=== PATIENT | male | born 1985 | race Caucasian/White ===

== ENCOUNTER 2017-08-13 11:58 | Emergency (ER) | payer SELFPAY ==
[2017-08-13] MEDS ORDERED: ASPIRIN PO ONE (12:15)
--- NOTE | 2017-08-13 12:41 | Emergency Department Report ---
ED Palpitations HPI - General Chief Complaint: Chest Pain Stated Complaint: CP/TACHYCARDIA WPW Time Seen by Provider: 08/13/17 12:29 Source: patient, old records reviewed (none available, first visit) Mode of arrival: Ambulatory Limitations: No Limitations - History of Present Illness Initial Comments: 31-year-old male with a past medical history of asthma, hypertension, WPW status post ablation 4 years ago presents to the hospital with complaints of intermittent palpitations and chest pain 1 week. Patient states he is having intermittent left-sided stabbing chest pain without aggravating or alleviating activities. Pain is minimal at this time. Patient also expresses at night he experiences tachycardia with irregular rhythm causing him with associated shortness of breath. Patient also has tenderness to his hands during episodes. Patient is supposedly on metoprolol 25 mg twice a day but has been out of her medication for 2-3 weeks. Patient has a heart rate monitor and knows how to check his pulse rate but he has not counted or documented his pulse rate during these tachycardic episodes. Patient denies history of PE/DVT, recent travel, calf tenderness, or unilateral edema. Patient has significant pain of the left posterior thoracic pain that started after lifting a heavy object. This pain is worse with movement and palpation. As per triage pain is reported 10/10 in intensity however this does not appear to be acute distress. His cardiac ablation occurred while living in [place]. 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 - Related Data Previous Rx's Medication Instructions Recorded Last Taken Type ALBUTEROL Inhaler [ProAir HFA 2 puff IH QID PRN #1 inha 08/13/17 Unknown Rx Inhaler] Metoprolol [Lopressor TAB] 25 mg PO BID #60 tablet 08/13/17 Unknown Rx Naproxen [Naprosyn TAB] 500 mg PO BID PRN #30 tablet 08/13/17 Unknown Rx Allergies Allergy/AdvReac Type Severity Reaction Status Date / Time No Known Allergies Allergy Unverified 08/13/17 12:11 ED Review of Systems ROS: Stated complaint: CP/TACHYCARDIA WPW Other details as noted in HPI Comment: All other systems reviewed and negative ED Past Medical Hx - Past Medical History Previous Medical History?: Yes Hx Hypertension: Yes Hx Heart Attack/AMI: No Hx Asthma: Yes Additional medical history: WPW - Surgical History Past Surgical History?: Yes Additional Surgical History: Cardiac ablation for WPW 2014 in [place] - Social History Smoking Status: Current Every Day Smoker Substance Use Type: None - Medications Home Medications: Home Medications Medication Instructions Recorded Confirmed Last Taken Type ALBUTEROL Inhaler [ProAir HFA 2 puff IH QID PRN #1 inha 08/13/17 Unknown Rx Inhaler] Metoprolol [Lopressor TAB] 25 mg PO BID #60 tablet 08/13/17 Unknown Rx Naproxen [Naprosyn TAB] 500 mg PO BID PRN #30 tablet 08/13/17 Unknown Rx ED Physical Exam - General Limitations: No Limitations - Other Other exam information: General: No limitations, patient is alert in no acute distress Head exam: Atraumatic, normocephalic Eyes exam: Normal appearance ENT: Moist mucous membrane, normal oropharynx Neck exam: Normal inspection, full range of motion, no meningismus nontender Respiratory exam: Clear to auscultation bilateral, no wheezes, rales, crackles Cardiovascular: Normal rate and rhythm, normal heart sounds, mild left anterior posterior lateral thoracic tenderness Abdomen: Soft, nondistended, and nontender, with normal bowel sounds, no rebound, or guarding Extremity: Full range of motion normal inspection no deformity, no calf tenderness, leg asymmetry, or edema. Back: Normal Inspection, full range of motion, no tenderness Neurologic: Alert, oriented x3, cranial nerves intact, no motor or sensory deficit Psychiatric: normal affect, normal mood Skin: Warm, dry, intact ED Course Vital Signs 08/13/17 08/13/17 08/13/17 12:11 12:36 12:40 Temperature 98.0 F 98 F Pulse Rate 83 84 Respiratory 18 18 Rate Blood Pressure 137/75 Blood Pressure 123/79 [Right] O2 Sat by Pulse 98 96 96 Oximetry 08/13/17 12:45 Temperature Pulse Rate 88 Respiratory 18 Rate Blood Pressure 123/79 Blood Pressure [Right] O2 Sat by Pulse 98 Oximetry ED Medical Decision Making - Lab Data Result diagrams: 08/13/17 13:22 08/13/17 13:22 Lab Results 08/13/17 08/13/17 08/13/17 Range/Units 13:22 13:22 13:22 WBC 8.3 (4.5-11.0) K/mm3 RBC 5.29 H (3.65-5.03) M/mm3 Hgb 15.2 (11.8-15.2) gm/dl Hct 44.6 (35.5-45.6) % MCV 84 (84-94) fl MCH 29 (28-32) pg MCHC 34 (32-34) % RDW 13.2 (13.2-15.2) % Plt Count 243 (140-440) K/mm3 Lymph % (Auto) 24.1 (13.4-35.0) % [place] % (Auto) 7.0 (0.0-7.3) % Eos % (Auto) 4.1 (0.0-4.3) % Baso % (Auto) 1.3 (0.0-1.8) % Lymph # 2.0 (1.2-5.4) K/mm3 [place] # 0.6 (0.0-0.8) K/mm3 Eos # 0.3 (0.0-0.4) K/mm3 Baso # 0.1 (0.0-0.1) K/mm3 Seg Neutrophils % 63.5 (40.0-70.0) % Seg Neutrophils # 5.3 (1.8-7.7) K/mm3 PT 12.4 (12.2-14.9) Sec. INR 0.88 (0.87-1.13) D-Dimer 155.49 (0-234) ng/mlDDU Sodium 139 (137-145) mmol/L Potassium 4.1 (3.6-5.0) mmol/L Chloride 101.4 (98-107) mmol/L Carbon Dioxide 25 (22-30) mmol/L Anion Gap 17 mmol/L BUN 15 (9-20) mg/dL Creatinine 0.7 L (0.8-1.5) mg/dL Estimated GFR > 60 ml/min BUN/Creatinine Ratio 21 % Glucose 92 (75-100) mg/dL Calcium 9.1 (8.4-10.2) mg/dL Magnesium (1.7-2.3) mg/dL Troponin T < 0.010 (0.00-0.029) ng/mL TSH (0.270-4.200) mlU/mL Free T4 (0.76-1.46) ng/dL Urine Opiates Screen Urine Methadone Screen Ur Barbiturates Screen Ur Phencyclidine Scrn Ur Amphetamines Screen U Benzodiazepines Scrn Urine Cocaine Screen U Marijuana (THC) Screen Drugs of Abuse Note 08/13/17 08/13/17 08/13/17 Range/Units 13:22 13:22 14:31 WBC (4.5-11.0) K/mm3 RBC (3.65-5.03) M/mm3 Hgb (11.8-15.2) gm/dl Hct (35.5-45.6) % MCV (84-94) fl MCH (28-32) pg MCHC (32-34) % RDW (13.2-15.2) % Plt Count (140-440) K/mm3 Lymph % (Auto) (13.4-35.0) % [place] % (Auto) (0.0-7.3) % Eos % (Auto) (0.0-4.3) % Baso % (Auto) (0.0-1.8) % Lymph # (1.2-5.4) K/mm3 [place] # (0.0-0.8) K/mm3 Eos # (0.0-0.4) K/mm3 Baso # (0.0-0.1) K/mm3 Seg Neutrophils % (40.0-70.0) % Seg Neutrophils # (1.8-7.7) K/mm3 PT (12.2-14.9) Sec. INR (0.87-1.13) D-Dimer (0-234) ng/mlDDU Sodium (137-145) mmol/L Potassium (3.6-5.0) mmol/L Chloride (98-107) mmol/L Carbon Dioxide (22-30) mmol/L Anion Gap mmol/L BUN (9-20) mg/dL Creatinine (0.8-1.5) mg/dL Estimated GFR ml/min BUN/Creatinine Ratio % Glucose (75-100) mg/dL Calcium (8.4-10.2) mg/dL Magnesium 2.10 (1.7-2.3) mg/dL Troponin T (0.00-0.029) ng/mL TSH 0.624 (0.270-4.200) mlU/mL Free T4 1.21 (0.76-1.46) ng/dL Urine Opiates Screen Presumptive negative Urine Methadone Screen Presumptive negative Ur Barbiturates Screen Presumptive negative Ur Phencyclidine Scrn Presumptive negative Ur Amphetamines Screen Presumptive negative U Benzodiazepines Scrn Presumptive negative Urine Cocaine Screen Presumptive positive U Marijuana (THC) Screen Presumptive negative Drugs of Abuse Note Disclamer - EKG Data -: EKG Interpreted by Me EKG shows normal: sinus rhythm, axis (qrs 72), QRS complexes (qrsd 102), ST-T waves (no stemi/ t inv) Rate: normal (72) - EKG Data When compared to previous EKG there are: previous EKG unavailable - Radiology Data Radiology results: report reviewed ROUTINE CHEST, TWO VIEWS: HISTORY: Left-sided chest pain. The trachea, heart, mediastinal contour, lung cameron and bony thorax are unremarkable. IMPRESSION: Unremarkable chest x-ray. - Medical Decision Making cp/palp hx of wpw with ablation UDS positive for cocaine Noncompliant with metoprolol No signs of tachycardia or arrhythmia in the ED Other lab work negative Case was briefly discussed with Kaitlynn Haider with cardiology and informed patient will be sent to the office for follow-up Patient be educated on how to check his pulse and instructed to document his pulse rate during palpitation episodes. Metoprolol 1 month supply will be prescribed and follow-up encouraged. - Differential Diagnosis arrhythmia, palpitations, Pe, unstable angina, msk pain, thyroid Critical Care Time: No Critical care attestation.: If time is entered above; I have spent that time in minutes in the direct care of this critically ill patient, excluding procedure time. ED Disposition Clinical Impression: Chest pain, Palpitations, Cocaine abuse, History of Xpchx-Qxqsltzsp-Dydkz (WPW ) syndrome, Back strain Disposition: DC-01 TO HOME OR SELFCARE Is pt being admited?: No Does the pt Need Aspirin: No Condition: Stable Instructions: Chest Pain (ED), Palpitations (ED), Cocaine Abuse (ED), Back Pain (ED) Additional Instructions: Take medication as prescribed. Stop using cocaine because it can worsen your heart palpitations and chest pain. Follow up with any other resources provided. Return if symptoms worsen as indicated by your discharge instructions Prescriptions: ALBUTEROL Inhaler [ProAir HFA Inhaler] 2 puff IH QID PRN #1 inha PRN Reason: Shortness Of Breath Metoprolol [Lopressor TAB] 25 mg PO BID #60 tablet Naproxen [Naprosyn TAB] 500 mg PO BID PRN #30 tablet PRN Reason: Pain Referrals: WENCESLAO MAKI MD [Staff Physician] - 3-5 Days (tablet machine operator) COLE CAMERON MD [Staff Physician] - 3-5 Days (primary care doctor) [facility] [Provider Group] - 3-5 Days (primary care clinic) Time of Disposition: 15:38
--- NOTE | 2017-08-13 13:02 | XRay Report ---
ROUTINE CHEST, TWO VIEWS: HISTORY: Left-sided chest pain. The trachea, heart, mediastinal contour, lung cameron and bony thorax are unremarkable. IMPRESSION: Unremarkable chest x-ray.
[2017-08-13 13:43] LABS: Basophils # (Auto) 0.1 K/mm3 (0.0-0.1); Basophils % (Auto) 1.3 % (0.0-1.8); Eosinophils # (Auto) 0.3 K/mm3 (0.0-0.4); Eosinophils % (Auto) 4.1 % (0.0-4.3); Hematocrit 44.6 % (35.5-45.6); Hemoglobin 15.2 gm/dl (11.8-15.2); Lymphocytes % (Auto) 24.1 % (13.4-35.0); Mean Corpuscular HGB Conc 34 % (32-34); Mean Corpuscular Hemoglobin 29 pg (28-32); Mean Corpuscular Volume 84 fl (84-94); Monocytes # (Auto) 0.6 K/mm3 (0.0-0.8); Platelet Count 243 K/mm3 (140-440); Red Blood Count 5.29 M/mm3 (3.65-5.03); Red Cell Distribution Width 13.2 % (13.2-15.2)
[2017-08-13 13:53] LABS: INR 0.88 (0.87-1.13)
[2017-08-13 13:58] LABS: BUN/Creatinine Ratio 21; Blood Urea Nitrogen 15 mg/dL (9-20); Calcium 9.1 mg/dL (8.4-10.2); Hemolysis Index 4
[2017-08-13 14:08] LABS: Free T4 (Free Thyroxine) 1.21 ng/dL (0.76-1.46)
[2017-08-13 15:13] LABS: Amphetamine Screen,Urine PRESUMPTIVE NEGATIVE; Benzodiazepines Screen,Urine PRESUMPTIVE NEGATIVE; Cannabinoid Screen,Urine PRESUMPTIVE NEGATIVE; Methadone Screen,Urine PRESUMPTIVE NEGATIVE; Opiate Screen,Urine PRESUMPTIVE NEGATIVE
[2017-08-13] MEDS ORDERED: TORADOL IM ONE (15:31)
[2017-08-13 15:32] LABS: Cocaine Screen,Urine PRESUMPTIVE POSITIVE
[2017-08-13 16:07] VITALS: BP 118/64
== END 2017-08-13 16:07 | disposition home or self-care (01) ==
LOC: ED 11:58
DX: S29.012A Strain of muscle and tendon of back wall of thorax, initial encounter (principal); R07.9 Chest pain, unspecified; R00.2 Palpitations; I45.6 Pre-excitation syndrome; I10 Essential (primary) hypertension; J45.909 Unspecified asthma, uncomplicated; F17.200 Nicotine dependence, unspecified, uncomplicated; F14.10 Cocaine abuse, uncomplicated; X58.XXXA Exposure to other specified factors, initial encounter; Y93.89 Activity, other specified; Y99.8 Other external cause status; Y92.89 Other specified places as the place of occurrence of the external cause
CPT/HCPCS: 36415; 71046; 80048; 80307; 83735; 84439; 84443; 84484; 85025; 85379; 85610; 93005; 93010; 96372; 99284; J1885

== ENCOUNTER 2017-09-22 22:50 | Emergency (ER) | payer SELFPAY ==
[2017-09-22 23:08] VITALS: BP 128/71
== END 2017-09-23 02:40 | disposition left against medical advice (07) ==
LOC: ED 22:50
DX: Z76.0 Encounter for issue of repeat prescription (principal); Z53.21 Procedure and treatment not carried out due to patient leaving prior to being seen by health care provider

== ENCOUNTER 2018-03-14 14:16 | Emergency (ER) | payer SELFPAY ==
[2018-03-14 14:26] VITALS: BP 139/85
[2018-03-14] MEDS ORDERED: VIBRAMYCIN PO ONE (15:36)
[2018-03-14] MEDS ORDERED: NORCO 5/325 PO ONE (15:36)
[2018-03-14] MEDS ORDERED: DELTASONE PO ONE (15:36)
--- NOTE | 2018-03-14 15:42 | Emergency Department Report ---
ED General Adult HPI - General Chief complaint: Pain General Stated complaint: FALL/HIP AND BACK PAIN Time Seen by Provider: 03/14/18 15:30 Source: patient Mode of arrival: Ambulatory Limitations: No Limitations - History of Present Illness Initial comments: Mr. Watkins is a very pleasant 32-year-old male with history of asthma, tobacco abuse and WPW status post ablation who presents with cough shortness breath wheezing and white sputum production for several days. Several years ago he had history of pneumonia with similar symptoms. He wanted to make sure to be checked out. 2 months ago on his job, he slipped on soapy water. He was walking across a car wash area when he slipped and twisted his left hip upper thigh. He has severe pain at the left help with certain movements. He is able to extend and flex at the hip. However he is unable to entirely rotate the hip without pain. This incident occurred 2 months ago. 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 He denies chest pain. He does has mild fullness discomfort in his chest with congestion. No radiation the pain. -: Gradual, week(s), month(s) Quality: burning, dull Consistency: constant, intermittent Improves with: rest Worsens with: movement Associated Symptoms: cough, malaise, shortness of breath - Related Data Previous Rx's Medication Instructions Recorded Last Taken Type ALBUTEROL Inhaler (OR & NICU) 2 puff IH QID PRN #1 inha 08/13/17 Unknown Rx [ProAir HFA Inhaler] Metoprolol [Lopressor TAB] 25 mg PO BID #60 tablet 08/13/17 Unknown Rx Naproxen [Naprosyn TAB] 500 mg PO BID PRN #30 tablet 08/13/17 Unknown Rx Doxycycline Hyclate [Doxycycline 100 mg PO Q12HR 7 Days #14 tab 03/14/18 Unknown Rx Hyclate TAB] predniSONE [Deltasone] 3 tab PO QDAY 4 Days #12 tab 03/14/18 Unknown Rx Allergies Allergy/AdvReac Type Severity Reaction Status Date / Time No Known Allergies Allergy Verified 03/14/18 14:23 ED Review of Systems ROS: Stated complaint: FALL/HIP AND BACK PAIN Other details as noted in HPI Comment: All other systems reviewed and negative Constitutional: denies: fever, malaise Respiratory: cough Cardiovascular: chest pain ED Past Medical Hx - Past Medical History Previous Medical History?: Yes Hx Hypertension: Yes Hx Heart Attack/AMI: No Hx Asthma: Yes Additional medical history: WPW - Surgical History Past Surgical History?: Yes Additional Surgical History: Cardiac ablation for WPW 2013 in [place] - Social History Smoking Status: Current Every Day Smoker Substance Use Type: Alcohol - Medications Home Medications: Home Medications Medication Instructions Recorded Confirmed Last Taken Type ALBUTEROL Inhaler (OR & NICU) 2 puff IH QID PRN #1 inha 08/13/17 Unknown Rx [ProAir HFA Inhaler] Metoprolol [Lopressor TAB] 25 mg PO BID #60 tablet 08/13/17 Unknown Rx Naproxen [Naprosyn TAB] 500 mg PO BID PRN #30 tablet 08/13/17 Unknown Rx Doxycycline Hyclate [Doxycycline 100 mg PO Q12HR 7 Days #14 tab 03/14/18 Unknown Rx Hyclate TAB] predniSONE [Deltasone] 3 tab PO QDAY 4 Days #12 tab 03/14/18 Unknown Rx ED Physical Exam - General Limitations: No Limitations General appearance: alert, in no apparent distress - Head Head exam: Present: atraumatic, normocephalic - Eye Eye exam: Present: normal appearance - ENT ENT exam: Present: mucous membranes moist - Neck Neck exam: Present: normal inspection - Respiratory Respiratory exam: Present: wheezes (history we've is good air movement). Absent: respiratory distress, rales, rhonchi, stridor, accessory muscle use, decreased breath sounds - Cardiovascular Cardiovascular Exam: Present: regular rate, normal rhythm, normal heart sounds. Absent: bradycardia, tachycardia, systolic murmur, diastolic murmur, rubs, gallop - GI/Abdominal GI/Abdominal exam: Present: soft, normal bowel sounds. Absent: distended, tenderness, guarding, rebound - Rectal Rectal exam: Present: deferred - Extremities Exam Extremities exam: Present: normal inspection - Back Exam Back exam: Present: normal inspection - Neurological Exam Neurological exam: Present: alert, oriented X3 - Psychiatric Psychiatric exam: Present: normal affect, normal mood - Skin Skin exam: Present: warm, dry, intact, normal color. Absent: rash ED Course Vital Signs 03/14/18 14:20 Temperature 98.0 F Pulse Rate 110 H Respiratory 20 Rate Blood Pressure 139/85 O2 Sat by Pulse 96 Oximetry ED Medical Decision Making - EKG Data 03/14/18 15:44 EKG obtained 1427 Sinus tachycardia rate 100 bpm normal axis normal intervals no ST-T signs of ischemia - Radiology Data Radiology results: report reviewed, image reviewed interpreted by me: Left hip radiographs two-view: No fracture and no subluxation and no DJD Chest x-ray PA and lateral reported by radiologist no pulmonary infiltrates - Medical Decision Making 1. Acute bronchitis antibiotics are indicated with history of tobacco abuse and severe symptom, prescribed doxycycline and prednisone 2. Left hip sprain injury 2 months ago without fracture or subluxation, patient referred to orthopedic surgeon recommended physical therapy Recommended heat therapy Critical care attestation.: If time is entered above; I have spent that time in minutes in the direct care of this critically ill patient, excluding procedure time. ED Disposition Clinical Impression: Acute bronchitis, Tobacco abuse, Sprain of left hip Disposition: -01 TO HOME OR SELFCARE Is pt being admited?: No Does the pt Need Aspirin: No Condition: Stable Instructions: Acute Bronchitis (ED), Hip Sprain (ED) Prescriptions: Doxycycline Hyclate [Doxycycline Hyclate TAB] 100 mg PO Q12HR 7 Days #14 tab predniSONE [Deltasone] 3 tab PO QDAY 4 Days #12 tab Referrals: EVI JOHNSON MD [Staff Physician] - 3-5 Days
--- NOTE | 2018-03-14 16:20 | XRay Report ---
FINAL REPORT PROCEDURE: XR CHEST ROUTINE 2V TECHNIQUE: PA and lateral chest radiographs were obtained. CPT 49898 HISTORY: cough wheezing sputum production COMPARISON: No prior studies are available for comparison. FINDINGS: Heart: Normal. Mediastinum/Vessels: Normal. Lungs/Pleural space: No infiltrate, effusion, or pneumothorax. Bony thorax: No acute osseous abnormality. Other: IMPRESSION: No pulmonary infiltrates.
--- NOTE | 2018-03-14 16:41 | XRay Report ---
FINAL REPORT EXAM: XR HIP 2-3V LT HISTORY: hip injury TECHNIQUE: Left hip and AP pelvis PRIORS: None. FINDINGS: No fracture identified. No dislocation seen. Femoral head maintains a normal contour. Joint spaces w ithin normal limits. Adjacent bony pelvis is unremarkable IMPRESSION: Negative hip series
== END 2018-03-14 16:42 | disposition home or self-care (01) ==
LOC: ED 14:16
DX: S73.102A Unspecified sprain of left hip, initial encounter (principal); J20.9 Acute bronchitis, unspecified; F10.10 Alcohol abuse, uncomplicated; I10 Essential (primary) hypertension; J45.909 Unspecified asthma, uncomplicated; F17.200 Nicotine dependence, unspecified, uncomplicated; W01.0XXA Fall on same level from slipping, tripping and stumbling without subsequent striking against object, initial encounter; Y93.89 Activity, other specified; Y92.89 Other specified places as the place of occurrence of the external cause; Y99.8 Other external cause status
CPT/HCPCS: 71046; 73502; 93005; 93010; 99283; J7512

== ENCOUNTER 2018-04-29 17:12 | Emergency (ER) | payer OTHER ==
[2018-04-29 17:21] VITALS: BP 139/72
--- NOTE | 2018-04-29 17:23 | Emergency Department Report ---
Blank Doc - Documentation Documentation: C/O N/V/D with abd pain that started last night. This initial assessment diagnostic orders/clinical plan/treatment (s) is/Are subject change based on patient's health status, clinical progression and re- assessment by fellow clinical providers in the ED. Further treatment and work-up at subsequent clinical providers discretion. Patient/guardians urged not to elope from s their condition may be serious if not clinically assessed and managed. Inital order include:
[2018-04-29 18:58] LABS: Bilirubin,Urine NEG (Negative); Blood,Urine NEG (Negative); Color,Urine Yellow (Yellow); Protein,Urine <15 mg/dL mg/dL (Negative); Urobilinogen,Urine < 2.0 mg/dL (<2.0)
[2018-04-29] MEDS ORDERED: NACL 0.9% 1000 ML 1,000 ML IV ONE (20:40)
[2018-04-29] MEDS ORDERED: ZOFRAN IV ONE (20:40)
[2018-04-29] MEDS ORDERED: TORADOL IV ONE (20:40)
--- NOTE | 2018-04-29 21:06 | Emergency Department Report ---
ED Abdominal Pain HPI - General Chief Complaint: Nausea/Vomiting/Diarrhea Stated Complaint: LT HIP PAIN/WEAKNESS/VOMITING Time Seen by Provider: 04/29/18 17:18 Source: patient Mode of arrival: Ambulatory Limitations: No Limitations - History of Present Illness Initial Comments: Patient is a 32-year-old male who presents for generalized abdominal pain no nausea vomiting diarrhea T maximum 103 Fahrenheit at home temp is 97.5 today in triage nausea vomiting was 6 hours ago as diarrhea bleeding this a.m. past. Intake was 4 hours ago pain described as 6/10 and aching turning patient is a 5 pack year smoker and occasional EtOH , last EtOH 1 week ago, patient states pain is generalized and nonradiating there is no back pain no hematuria dysuria no history of pancreatitis or gallstones pain is exacerbated by eating pain is relieved by nothing MD Complaint: abdominal pain Onset/Timin -: days(s) Location: diffuse Radiation: none Migration to: no migration Severity: moderate Severity scale (0 -10): 6 Quality: aching Consistency: constant Improves With: nothing Worsens With: eating Associated Symptoms: nausea, vomiting, diarrhea, fever - Related Data Previous Rx's Medication Instructions Recorded Last Taken Type ALBUTEROL Inhaler (OR & NICU) 2 puff IH QID PRN #1 inha 08/13/17 Unknown Rx [ProAir HFA Inhaler] Metoprolol [Lopressor TAB] 25 mg PO BID #60 tablet 08/13/17 Unknown Rx Naproxen [Naprosyn TAB] 500 mg PO BID PRN #30 tablet 08/13/17 Unknown Rx Doxycycline Hyclate [Doxycycline 100 mg PO Q12HR 7 Days #14 tab 03/14/18 Unknown Rx Hyclate TAB] predniSONE [Deltasone] 3 tab PO QDAY 4 Days #12 tab 03/14/18 Unknown Rx Dicyclomine [Bentyl] 10 mg PO QID PRN #30 capsule 04/29/18 Unknown Rx Naproxen 500 mg PO BID PRN #30 tablet 04/29/18 Unknown Rx Ondansetron [Zofran Odt] 1 applicatio PO Q8HR PRN #12 04/29/18 Unknown Rx tab.rapdis Allergies Allergy/AdvReac Type Severity Reaction Status Date / Time No Known Allergies Allergy Verified 04/29/18 17:13 ED Review of Systems ROS: Stated complaint: LT HIP PAIN/WEAKNESS/VOMITING Other details as noted in HPI Constitutional: denies: chills, fever Eyes: denies: eye pain, eye discharge, vision change ENT: denies: ear pain, throat pain Respiratory: denies: cough, shortness of breath, wheezing Cardiovascular: denies: chest pain, palpitations Endocrine: no symptoms reported Gastrointestinal: abdominal pain, nausea, vomiting, diarrhea Genitourinary: denies: urgency, dysuria Musculoskeletal: denies: back pain, joint swelling, arthralgia Skin: denies: rash, lesions Neurological: denies: headache, weakness, paresthesias Psychiatric: denies: anxiety, depression Hematological/Lymphatic: denies: easy bleeding, easy bruising ED Past Medical Hx - Past Medical History Hx Hypertension: Yes Hx Heart Attack/AMI: No Hx Asthma: Yes Additional medical history: WPW - Surgical History Additional Surgical History: 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 [place] - Social History Smoking Status: Current Every Day Smoker Substance Use Type: Alcohol - Medications Home Medications: Home Medications Medication Instructions Recorded Confirmed Last Taken Type ALBUTEROL Inhaler (OR & NICU) 2 puff IH QID PRN #1 inha 08/13/17 Unknown Rx [ProAir HFA Inhaler] Metoprolol [Lopressor TAB] 25 mg PO BID #60 tablet 08/13/17 Unknown Rx Naproxen [Naprosyn TAB] 500 mg PO BID PRN #30 tablet 08/13/17 Unknown Rx Doxycycline Hyclate [Doxycycline 100 mg PO Q12HR 7 Days #14 tab 03/14/18 Unknow n Rx Hyclate TAB] predniSONE [Deltasone] 3 tab PO QDAY 4 Days #12 tab 03/14/18 Unknown Rx Dicyclomine [Bentyl] 10 mg PO QID PRN #30 capsule 04/29/18 Unknown Rx Naproxen 500 mg PO BID PRN #30 tablet 04/29/18 Unknown Rx Ondansetron [Zofran Odt] 1 applicatio PO Q8HR PRN #12 04/29/18 Unknown Rx tab.rapdis ED Physical Exam - General Limitations: No Limitations General appearance: alert, in no apparent distress - Head Head exam: Present: atraumatic, normocephalic - Eye Eye exam: Present: normal appearance - ENT ENT exam: Present: mucous membranes moist - Neck Neck exam: Present: normal inspection, full ROM. Absent: tenderness, lymphadenopathy, thyromegaly - Respiratory Respiratory exam: Present: normal lung sounds bilaterally. Absent: respiratory distress, wheezes, stridor, chest wall tenderness - Cardiovascular Cardiovascular Exam: Present: regular rate, normal rhythm, normal heart sounds. Absent: systolic murmur, diastolic murmur, rubs, gallop - GI/Abdominal GI/Abdominal exam: Present: soft, normal bowel sounds. Absent: tenderness, guarding, rebound, rigid, bruit, hernia - Rectal Rectal exam: Present: deferred - Extremities Exam Extremities exam: Present: normal inspection, full ROM. Absent: tenderness - Back Exam Back exam: Present: normal inspection, full ROM. Absent: tenderness, CVA tenderness (R), CVA tenderness (L), rash noted - Neurological Exam Neurological exam: Present: alert, oriented X3, CN II-XII intact, normal gait, reflexes normal - Psychiatric Psychiatric exam: Present: normal affect, normal mood - Skin Skin exam: Present: warm, dry, intact, normal color. Absent: rash ED Course Vital Signs 04/29/18 17:19 Temperature 97.5 F L Pulse Rate 87 Respiratory 18 Rate Blood Pressure 139/72 O2 Sat by Pulse 98 Oximetry ED Medical Decision Making - Lab Data Result diagrams: 04/29/18 21:04 04/29/18 21:04 Labs 04/29/18 04/29/18 04/29/18 18:33 21:04 21:04 WBC 8.6 RBC 4.84 Hgb 14.2 Hct 42.4 MCV 88 MCH 29 MCHC 33 RDW 13.4 Plt Count 215 Lymph % (Auto) 29.9 [place] % (Auto) 8.4 H Eos % (Auto) 7.2 H Baso % (Auto) 0.7 Lymph # 2.6 [place] # 0.7 Eos # 0.6 H Baso # 0.1 Seg Neutrophils % 53.8 Seg Neutrophils # 4.6 Sodium 142 Potassium 3.9 Chloride 104.8 Carbon Dioxide 27 Anion Gap 14 BUN 20 Creatinine 0.9 Estimated GFR > 60 BUN/Creatinine Ratio 22 Glucose 92 Calcium 8.6 Total Bilirubin < 0.20 AST 20 ALT 28 Alkaline Phosphatase 91 Total Protein 6.5 Albumin 4.0 Albumin/Globulin Ratio 1.6 Lipase 32 Urine Color Yellow Urine Turbidity Clear Urine pH 6.0 Ur Specific [place] 1.026 Urine Protein <15 mg/dl Urine Glucose (UA) Neg Urine Ketones Neg Urine Blood Neg Urine Nitrite Neg Urine Bilirubin Neg Urine Urobilinogen < 2.0 Ur Leukocyte Esterase Neg Urine WBC (Auto) 1.0 Urine RBC (Auto) 4.0 U Epithel Cells (Auto) < 1.0 - Medical Decision Making all symptoms resloved there is no fever no chills no n/v pt is tolerating po intake plan: bentyl, naproxen, zofran follow up with pcp in 2-3 days given referral to [facility] in 2-3 days pt verbalized agreement and understanding of same, pt is 0/10 at this time, Critical care attestation.: If time is entered above; I have spent that time in minutes in the direct care of this critically ill patient, excluding procedure time. ED Disposition Clinical Impression: Abdominal pain Qualifiers: Abdominal location: generalized Qualified Code(s): R10.84 - Generalized abdominal pain Nausea and vomiting Qualifiers: Vomiting type: unspecified Vomiting Intractability: non-intractable Qualified Code(s): R11.2 - Nausea with vomiting, unspecified Disposition: TO HOME OR SELFCARE Is pt being admited?: No Does the pt Need Aspirin: No Condition: Stable Instructions: Acute Nausea and Vomiting (ED) Prescriptions: Dicyclomine [Bentyl] 10 mg PO QID PRN #30 capsule PRN Reason: abd spasm Naproxen 500 mg PO BID PRN #30 tablet PRN Reason: pain Ondansetron [Zofran Odt] 1 applicatio PO Q8HR PRN #12 tab.rapdis PRN Reason: Nausea And Vomiting Referrals: JOE PARRY MD [Primary Care Provider] - 3-5 Days Forms: Work/School Release Form(ED) Time of Disposition: 23:19
[2018-04-29 21:22] LABS: Basophils # (Auto) 0.1 K/mm3 (0.0-0.1); Basophils % (Auto) 0.7 % (0.0-1.8); Eosinophils # (Auto) 0.6 K/mm3 (0.0-0.4); Eosinophils % (Auto) 7.2 % (0.0-4.3); Hematocrit 42.4 % (35.5-45.6); Hemoglobin 14.2 gm/dl (11.8-15.2); Lymphocytes # (Auto) 2.6 K/mm3 (1.2-5.4); Lymphocytes % (Auto) 29.9 % (13.4-35.0); Mean Corpuscular HGB Conc 33 % (32-34); Mean Corpuscular Volume 88 fl (84-94); Monocytes # (Auto) 0.7 K/mm3 (0.0-0.8); Monocytes % (Auto) 8.4 % (0.0-7.3); Platelet Count 215 K/mm3 (140-440); Red Blood Count 4.84 M/mm3 (3.65-5.03); Red Cell Distribution Width 13.4 % (13.2-15.2)
[2018-04-29 21:52] LABS: Alanine Aminotransferase 28 units/L (7-56); BUN/Creatinine Ratio 22; Blood Urea Nitrogen 20 mg/dL (9-20); Calcium 8.6 mg/dL (8.4-10.2); Hemolysis Index 15
== END 2018-04-29 23:25 | disposition home or self-care (01) ==
LOC: ED 17:12
DX: R10.84 Generalized abdominal pain (principal); R11.2 Nausea with vomiting, unspecified; R19.7 Diarrhea, unspecified; K92.1 Melena; I10 Essential (primary) hypertension; J45.909 Unspecified asthma, uncomplicated; F17.200 Nicotine dependence, unspecified, uncomplicated; Z79.899 Other long term (current) drug therapy
CPT/HCPCS: 36415; 80053; 81001; 83690; 85025; 96374; 96375; 99283; J1885; J2405; J7030; 96361

== ENCOUNTER 2018-07-28 05:32 | Inpatient (IN) | payer OTHER ==
[2018-07-28] MEDS ORDERED: DUONEB *Not for PRN Use IH ONE (05:34)
[2018-07-28] MEDS ORDERED: DECADRON IV ONE (05:50)
[2018-07-28] MEDS ORDERED: PROVENTIL IH ONE ×2 (05:50→09:05)
[2018-07-28] MEDS ORDERED: ATROVENT IH ONE (05:53)
--- NOTE | 2018-07-28 06:28 | Emergency Department Report ---
HPI - General Chief Complaint: Adult Asthma Time Seen by Provider: 07/28/18 06:22 - HPI HPI: 32-year-old male presents to the emergency department with a complaint of a 3 day history of some wheezing, shortness of breath and a mixed dry and productive cough that he believes is an asthma exacerbation. The patient does have a history of asthma and says that he has been using his albuterol inhaler and nebulizer at home without any relief. He also has a past medical history of hypertension and previous Qjkqs-Wmslscsae-Eptax with subsequent cardiac ablation. He is a tobacco smoker but denies any current illicit drug use. No recent travel or sick contacts at home. ED Past Medical Hx - Past Medical History Previous Medical History?: Yes Hx Hypertension: Yes Hx Heart Attack/AMI: No Hx Asthma: Yes Additional medical history: WPW - Surgical History Past Surgical History?: Yes Additional Surgical History: Cardiac ablation for 2013 in [place], - Social History Smoking Status: Current Every Day Smoker Substance Use Type: None - Medications Home Medications: Home Medications Medication Instructions Recorded Confirmed Last Taken Type Metoprolol [Lopressor TAB] 25 mg PO BID #60 tablet 08/13/17 07/28/18 Unknown Rx ALBUTEROL Inhaler (OR & NICU) 200 puff IH QID PRN 07/28/18 07/28/18 Unknown History [ProAir HFA Inhaler] Combivent Respimat 200 mcg INHALATION QDAY 07/28/18 07/28/18 Unknown History ED Review of Systems ROS: Stated complaint: OLEG Other details as noted in HPI Constitutional: denies: chills, fever Eyes: denies: eye pain, vision change Respiratory: cough, shortness of breath, wheezing Cardiovascular: denies: chest pain, palpitations Gastrointestinal: denies: abdominal pain, vomiting Genitourinary: denies: dysuria, discharge Musculoskeletal: denies: back pain, arthralgia Skin: denies: rash, lesions Neurological: denies: headache, weakness Physical Exam - Physical Exam Vital Signs: Vital Signs 07/28/18 07/28/18 07/28/18 05:34 06:00 06:01 Temperature 98 F Pulse Rate 90 Pulse Rate [ 95 H Bilateral Throughout] Respiratory 18 Rate Respiratory 20 Rate [Bilateral Throughout] Blood Pressure 170/80 O2 Sat by Pulse 96 99 Oximetry Physical Exam: GENERAL: The patient is well-developed well-nourished. HENT: Normocephalic. Atraumatic. Patient has moist mucous membranes. EYES: Extraocular motions are intact. NECK: Supple. Trachea is midline. CHEST/LUNGS: Mild to moderate wheezing throughout the chest. Mild tachypnea but no accessory muscle use. Occasional dry cough heard during examination.. There is no respiratory distress noted. HEART/CARDIOVASCULAR: Regular. There is no tachycardia. There is no murmur. ABDOMEN: Abdomen is soft, nontender. Patient has normal bowel sounds. There is no abdominal distention. SKIN: Skin is warm and dry. NEURO: The patient is awake, alert, and oriented. The patient is cooperative. The patient has no focal neurologic deficits. The patient has normal speech. MUSCULOSKELETAL: There is no tenderness or deformity. There is no evidence of acute injury. ED Course Vital Signs 07/28/18 07/28/18 07/28/18 05:34 06:00 06:01 Temperature 98 F Pulse Rate 90 Pulse Rate [ 95 H Bilateral Throughout] Respiratory 18 Rate Respiratory 20 Rate [Bilateral Throughout] Blood Pressure 170/80 O2 Sat by Pulse 96 99 Oximetry ED Medical Decision Making - Lab Data Result diagrams: 07/28/18 07:44 07/28/18 07:44 - EKG Data -: EKG Interpreted by Me EKG shows normal: sinus rhythm, axis, intervals, QRS complexes, ST-T waves Rate: normal - EKG Data When compared to previous EKG there are: previous EKG unavailable Interpretation: normal EKG - Radiology Data Radiology results: image reviewed interpreted by me: Chest x-ray does not show any acute process. There are no pleural effusions, obvious pneumonia and there is no pneumothorax. - Medical Decision Making Patient presents with a few days of shortness of breath, wheezing and coughing but appears to be an asthma exacerbation. He received steroids, IV fluid, multiple breathing treatments, IV magnesium, but the patient did not have much improvement in his symptoms. He does not appear to be in any respiratory distress but does still have some tachypnea and moderate bronchospasm. For this reason the patient will be admitted to the hospital for further evaluation and treatment and was accepted for admission by the hospitalist service. - Differential Diagnosis asthma, pneumonia, PE, DE Critical Care Time: No Critical care attestation.: If time is entered above; I have spent that time in minutes in the direct care of this critically ill patient, excluding procedure time. ED Disposition Clinical Impression: Tobacco use, Bronchospasm Asthma exacerbation Qualifiers: Asthma severity: unspecified severity Asthma persistence: unspecified Qualified Code(s): J45.901 - Unspecified asthma with (acute) exacerbation Disposition: OP ADMIT IP TO THIS HOSP Is pt being admited?: Yes Condition: Fair Time of Disposition: 10:15
[2018-07-28] MEDS ORDERED: MAGNESIUM SULFATE 2GM/50ML 2 GM/50 ML BAG IV ONE (07:35)
[2018-07-28] MEDS ORDERED: SOLU-Medrol IV ONE (07:35)
[2018-07-28] MEDS ORDERED: NACL 0.9% 1000 ML 1,000 ML IV ONE (07:36)
[2018-07-28 07:55] LABS: Basophils % (Auto) 0.3 % (0.0-1.8); Eosinophils # (Auto) 0.2 K/mm3 (0.0-0.4); Eosinophils % (Auto) 2.2 % (0.0-4.3); Hematocrit 41.9 % (35.5-45.6); Hemoglobin 14.2 gm/dl (11.8-15.2); Lymphocytes # (Auto) 0.8 K/mm3 (1.2-5.4); Lymphocytes % (Auto) 8.3 % (13.4-35.0); Mean Corpuscular HGB Conc 34 % (32-34); Mean Corpuscular Volume 87 fl (84-94); Monocytes # (Auto) 0.2 K/mm3 (0.0-0.8); Monocytes % (Auto) 2.3 % (0.0-7.3); Platelet Count 218 K/mm3 (140-440); Red Blood Count 4.81 M/mm3 (3.65-5.03); Red Cell Distribution Width 13.2 % (13.2-15.2)
[2018-07-28 08:15] LABS: BUN/Creatinine Ratio 18; Blood Urea Nitrogen 20 mg/dL (9-20); Hemolysis Index 3
--- NOTE | 2018-07-28 08:24 | XRay Report ---
ROUTINE CHEST, TWO VIEWS: HISTORY: Short of breath. Compared to 03/14/18. There is poor inspiratory effort. The trachea, heart, mediastinal contour, lung cameron and bony thorax are unremarkable. IMPRESSION: Unremarkable chest x-ray.
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
[2018-07-28] MEDS ORDERED: PROVENTIL IH PRN (12:44)
[2018-07-28] MEDS: DUONEB *Not for PRN Use IH SCH ×4 (12:49→20:38)
[2018-07-28] MEDS: PULMICORT IH SCH ×2 (13:21→20:38)
[2018-07-28] MEDS: LOPRESSOR PO SCH ×2 (14:09→21:35)
[2018-07-28] MEDS: ZITHROMAX 500 MG in NACL 0.9% 250ML 250 ML IV SCH (14:11)
[2018-07-28] MEDS ORDERED: ZOFRAN IV PRN (14:14)
[2018-07-28] MEDS ORDERED: APRESOLINE IV PRN (14:14)
[2018-07-28] MEDS ORDERED: TYLENOL PO PRN (14:14)
[2018-07-28] MEDS: NORCO 5/325 PO PRN ×2 (14:26→21:38)
[2018-07-28] MEDS: SOLU-Medrol IV SCH (18:09)
[2018-07-28] MEDS: PEPCID PO SCH (21:35)
[2018-07-28] MEDS: LOVENOX SUB-Q SCH (21:37)
[2018-07-28] MEDS: ALUM-MAG HYDROX-SIMETH 200-200-20MG/5ML PO PRN (23:43)
[2018-07-29] MEDS: DUONEB *Not for PRN Use IH SCH ×4 (02:00→19:03)
[2018-07-29] MEDS: TESSALON PERLES PO SCH ×3 (05:54→21:16)
[2018-07-29] MEDS: SOLU-Medrol IV SCH ×2 (05:54→18:26)
[2018-07-29] MEDS: PULMICORT IH SCH ×2 (07:57→19:03)
[2018-07-29] MEDS: ZITHROMAX 500 MG in NACL 0.9% 250ML 250 ML IV SCH (10:00)
[2018-07-29] MEDS: NORCO 5/325 PO PRN (11:49)
[2018-07-29] MEDS: LOPRESSOR PO SCH ×2 (11:50→21:16)
[2018-07-29] MEDS: PEPCID PO SCH (11:50)
[2018-07-29] MEDS: PROTONIX PO SCH (13:48)
[2018-07-29] MEDS: PERCOCET 5/325 PO PRN ×2 (14:38→21:22)
--- NOTE | 2018-07-29 15:20 | Progress Note ---
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 Subjective Date of service: 07/29/18 Interval history: Patient seen and examined. Medical records and medication list reviewed. No acute event overnight noted by the RN. Patient denies any chest pain. Patient is tolerating diet. Continue to have wheezing and shortness of breath on ambulation Discussed plan of care at bedside with patient. Objective - Exam Narrative Exam: GENERAL: well-developed and well-nourished male lying on bed appeared to be in no discomfort. HEENT: Normocephalic. Atraumatic. No conjunctival congestion or icterus. Patient has moist mucous membranes. NECK: Supple. Trachea midline. CHEST/LUNGS: + wheezes auscultated bilaterally, breathing nonlabored. No wheezes crackles or rhonchi. HEART/CARDIOVASCULAR: Regular in rate and rhythm. S1 and S2 positive. ABDOMEN: Abdomen is soft, nontender. Patient has normal bowel sounds. SKIN: There is no rash. Warm and dry. NEURO: No focal motor deficit. Follows command. MUSCULOSKELETAL: No joint effusion or tenderness. EXTRIMITY: No edema, no cyanosis or clubbing. PSYCH: Cooperative. - Constitutional Vitals: Vital Signs - 12hr 07/29/18 07/29/18 07/29/18 06:23 06:56 10:00 Temperature 97.3 F L Pulse Rate 84 Pulse Rate [ 95 H Bilateral Throughout] Respiratory 18 Rate Respiratory 20 Rate [Bilateral Throughout] Blood Pressure 129/71 O2 Sat by Pulse 92 96 Oximetry 07/29/18 07/29/18 07/29/18 11:28 11:50 13:40 Temperature 98.2 F Pulse Rate 76 76 Pulse Rate [ 87 Bilateral Throughout] Respiratory 16 Rate Respiratory 20 Rate [Bilateral Throughout] Blood Pressure 123/78 128/78 O2 Sat by Pulse 95 Oximetry 07/29/18 14:17 Temperature Pulse Rate Pulse Rate [ 94 H Bilateral Throughout] Respiratory Rate Respiratory 20 Rate [Bilateral Throughout] Blood Pressure O2 Sat by Pulse Oximetry - Labs CBC & Chem 7: 07/28/18 07:44 07/28/18 07:44
[2018-07-29] MEDS: HABITROL TD SCH (16:54)
[2018-07-29] MEDS: ALUM-MAG HYDROX-SIMETH 200-200-20MG/5ML PO PRN (18:30)
[2018-07-29] MEDS: LOVENOX SUB-Q SCH (21:22)
[2018-07-30] MEDS: DUONEB *Not for PRN Use IH SCH ×3 (01:37→13:00)
[2018-07-30] MEDS: ALUM-MAG HYDROX-SIMETH 200-200-20MG/5ML PO PRN (05:13)
[2018-07-30] MEDS: SOLU-Medrol IV SCH (05:14)
[2018-07-30] MEDS: PERCOCET 5/325 PO PRN (05:14)
[2018-07-30] MEDS: TESSALON PERLES PO SCH ×2 (05:20→13:34)
[2018-07-30] MEDS: PULMICORT IH SCH (07:40)
[2018-07-30 09:48] VITALS: BP 129/65
[2018-07-30] MEDS: HABITROL TD SCH (09:52)
[2018-07-30] MEDS: PROTONIX PO SCH (09:52)
[2018-07-30] MEDS: LOPRESSOR PO SCH (09:52)
[2018-07-30] MEDS ORDERED: ZITHROMAX PO SCH (10:00)
--- NOTE | 2018-07-30 10:00 | Discharge Summary ---
Providers - Providers Date of Admission: 07/29/18 08:17 Date of discharge: 07/30/18 Attending physician: SARATH SYLVESTER [facility] Reason for admission: SOB Condition: Fair Pertinent studies: CXR - no infiltrates Hospital course: 32-year-old male with a history of asthma, WPW syndrome status post cardiac ablation and tobacco abuse presented to the emergency department with a complaint of a 3 day history of wheezing, shortness of breath and a mixed dry productive cough. The patient was using his albuterol inhaler and nebulizer at home without any relief. Chest x-ray in the ER did not show any acute infiltrates, and he remains symptomatic after giving steroid couple rounds of breathing treatments in the ER. He was admitted for further evaluation and management of acute asthma exacerbation. Discharge diagnosis and management: Acute asthma/COPD exacerbation - Treated with scheduled nebulizer breathing treatment, empiric steroid and antibiotic - chest x-ray was unremarkable - Provided supplemental oxygen to keep oxygen saturation above 92% as needed - symptom improved with medical Mx - discharged home in stable condition with outpt f/u Tobacco Abuse, counseled, ordered nicotine patch if needed WPW syndrome, status post cardiac ablation in the past - Denies any chest pain, no arrhythmia on telemetry - outpt f/u Hypertension, not on any home meds -Appears stable DVT prophylaxis, with Lovenox. Physical exam GENERAL: well-developed and well-nourished male lying on bed appeared to be in no discomfort. HEENT: Normocephalic. Atraumatic. No conjunctival congestion or icterus. Patient has moist mucous membranes. NECK: Supple. Trachea midline. CHEST/LUNGS: + wheezes auscultated bilaterally, breathing nonlabored. No wheezes crackles or rhonchi. HEART/CARDIOVASCULAR: Regular in rate and rhythm. S1 and S2 positive. ABDOMEN: Abdomen is soft, nontender. Patient has normal bowel sounds. SKIN: There is no rash. Warm and dry. NEURO: No focal motor deficit. Follows command. MUSCULOSKELETAL: No joint effusion or tenderness. EXTRIMITY: No edema, no cyanosis or clubbing. PSYCH: Cooperative. Disposition: - TO HOME OR SELFCARE Time spent for discharge: 34 minutes Core Measure Documentation - Palliative Care Palliative Care/ Comfort Measures: Not Applicable - Core Measures Any of the following diagnoses?: none Exam - Constitutional Vitals: Temp Pulse Resp BP Pulse Ox 97.6 F 69 20 129/65 96 07/30/18 09:47 07/30/18 09:47 07/30/18 09:47 07/30/18 09:47 07/30/18 09:47 Plan Activity: advance as tolerated Weight Bearing Status: Weight Bear as Tolerated Diet: low fat, low salt Follow up with: LAUREN CANO MD [Staff Physician] - 7 Days RAFITA NAPIER MD [Staff Physician] - 7 Days [place] JOE MCCRAY MD [Primary Care Provider] - 3-5 Days Forms: Work/School Excuse Out Patient Prescriptions: Combivent Respimat 200 mcg INHALATION QDAY 30 Days Ipratropium/Albuterol Sulfate [DUONEB *Not for PRN Use*] 1 ampul IH Q6HRT PRN #30 ampul.neb PRN Reason: Shortness Of Breath Metoprolol [Lopressor TAB] 25 mg PO BID #60 tablet Prednisone [predniSONE 10 mg (6-Day Pack, 21 Tabs)] 10 mg PO .TAPER #1 tab.ds.pk ALBUTEROL Inhaler (OR & NICU) [ProAir HFA Inhaler] 200 puff IH QID PRN 30 Days #1 vial PRN Reason: Shortness Of Breath Pantoprazole [Protonix TAB] 40 mg PO QDAY #30 tablet Azithromycin [Zithromax TAB] 500 mg PO QDAY #4 tablet
== END 2018-07-30 14:35 | disposition home or self-care (01) | DRG 202 ==
LOC: ED 05:32 → 3A 10:16 → OBSVTOIN 07-29 08:17
PROVIDERS: ADMIT Internal Medicine; ATTEND Internal Medicine
DX: J45.901 Unspecified asthma with (acute) exacerbation (principal); J44.1 Chronic obstructive pulmonary disease with (acute) exacerbation; F17.200 Nicotine dependence, unspecified, uncomplicated; I45.6 Pre-excitation syndrome; I10 Essential (primary) hypertension; Z71.6 Tobacco abuse counseling; Z79.899 Other long term (current) drug therapy
CPT/HCPCS: 36415; 71046; 80048; 84443; 84484; 85025; 85379; 93005; 93010; 94640; 94644; 94760; 96374; 99285; 99406; G0378; J0456; J1100; J1650; J2920; J2930; J3475; J7030; J7050

== ENCOUNTER 2018-10-05 20:37 | Inpatient (IN) | payer OTHER ==
[2018-10-05] MEDS ORDERED: ATROVENT IH ONE ×2 (20:46→21:54)
[2018-10-05] MEDS ORDERED: DECADRON IV ONE (20:46)
[2018-10-05] MEDS ORDERED: PROVENTIL IH ONE (20:46)
[2018-10-05] MEDS ORDERED: DUONEB *Not for PRN Use IH ONE (20:48)
--- NOTE | 2018-10-05 21:01 | Event Note ---
ED Screening Note Date of service: 10/05/18 Time: 20:59 ED Screening Note: 32 y/o comes for sob. History of asthma and has been intubation . This initial assessment/diagnostic orders/clinical plan/treatment(s) is/are subject to change based on patients health status, clinical progression and re- assessment by fellow clinical providers in the ED. Further treatment and workup at subsequent clinical providers discretion. Patient/guardian urged not to elope from the ED as their condition may be serious if not clinically assessed and managed. Initial orders include:
[2018-10-05] MEDS ORDERED: MAGNESIUM SULFATE 2GM/50ML 2 GM/50 ML BAG IV ONE (21:03)
[2018-10-05] MEDS ORDERED: SOLU-Medrol IV ONE (21:03)
--- NOTE | 2018-10-05 21:11 | Emergency Department Report ---
HPI - General Chief Complaint: Dyspnea/Respdistress Time Seen by Provider: 10/05/18 20:46 - HPI HPI: Room 4 The patient is a 32-year-old male presenting with a chief complaint of asthma exacerbation. Patient states his symptoms began 2 days ago with tightness consistent with his asthma. The patient states he was using his rescue inhaler but only offer temporary relief from (approximately 20 minutes). Patient continues to feel short of breath. Patient denies cough. Patient states his symptoms are consistent with his previous bouts of asthma Location: [See above] Duration: [See above] Quality: [See above] Severity: [See above] Modifying factors: [see above] Context: [see above] Mode of transportation: [not driving] ED Past Medical Hx - Past Medical History Hx Hypertension: Yes Hx Asthma: Yes Additional medical history: WPW - Surgical History Additional Surgical History: Cardiac ablation for WPW 2013 in [place], - Family History Family history: no significant - Social History Smoking Status: Current Every Day Smoker Substance Use Type: Alcohol (occasional), Cocaine (last use one week ago) - Medications Home Medications: Home Medications Medication Instructions Recorded Confirmed Last Taken Type ALBUTEROL Inhaler (OR & NICU) 200 puff IH QID PRN 30 Days #1 vial 07/30/18 Unknown Rx [ProAir HFA Inhaler] Azithromycin [Zithromax TAB] 500 mg PO QDAY #4 tablet 07/30/18 Unknown Rx Combivent Respimat 200 mcg INHALATION QDAY 30 Days 07/30/18 Unknown Rx Ipratropium/Albuterol Sulfate 1 ampul IH Q6HRT PRN #30 ampul.neb 07/30/18 Unknown Rx [DUONEB *Not for PRN Use*] Metoprolol [Lopressor TAB] 25 mg PO BID #60 tablet 07/30/18 Unknown Rx Pantoprazole [Protonix TAB] 40 mg PO QDAY #30 tablet 07/30/18 Unknown Rx Prednisone [predniSONE 10 mg 10 mg PO .TAPER #1 tab.ds.pk 07/30/18 Unknown Rx (6-Day Pack, 21 Tabs)] ED Review of Systems ROS: Stated complaint: OLEG Other details as noted in HPI Constitutional: denies: fever Eyes: denies: eye pain ENT: denies: throat pain Respiratory: shortness of breath, wheezing. denies: cough Cardiovascular: denies: chest pain Endocrine: no symptoms reported Gastrointestinal: denies: abdominal pain Genitourinary: denies: dysuria Musculoskeletal: denies: back pain Neurological: denies: headache Physical Exam - Physical Exam Vital Signs: Vital Signs 10/05/18 10/05/18 10/05/18 20:37 20:46 20:59 Temperature 98.2 F Pulse Rate 93 H Pulse Rate [ 78 80 Anterior] Respiratory 28 H Rate Respiratory 18 19 Rate [Anterior] Blood Pressure 129/84 O2 Sat by Pulse 93 Oximetry Physical Exam: GENERAL: The patient is well-developed well-nourished male lying on stretcher receiving nebulizer not appearing to be in acute distress. [] HEENT: Normocephalic. Atraumatic. Extraocular motions are intact. Patient has moist mucous membranes. NECK: Supple. Trachea midline CHEST/LUNGS: Diffuse wheezing HEART/CARDIOVASCULAR: Regular. There is no tachycardia. There is no gallop rub or murmur. ABDOMEN: Abdomen is soft, nontender. Patient has normal bowel sounds. There is no abdominal distention. SKIN: There is no rash. There is no edema. There is no diaphoresis. NEURO: The patient is awake, alert, and oriented. The patient is cooperative. The patient has normal speech MUSCULOSKELETAL:There is no evidence of acute injury. ED Course Vital Signs 10/05/18 10/05/18 10/05/18 20:37 20:46 20:59 Temperature 98.2 F Pulse Rate 93 H Pulse Rate [ 78 80 Anterior] Respiratory 28 H Rate Respiratory 18 19 Rate [Anterior] Blood Pressure 129/84 O2 Sat by Pulse 93 Oximetry - Reevaluation(s) Reevaluation #1: 10/06/18 01:16 The patient still has faint expiratory wheezing. Patient states she still feels short of breath whenever he gets up and moves around. Will admit the patient to the hospital ED Medical Decision Making - Lab Data Result diagrams: 10/05/18 23:10 10/05/18 22:59 Laboratory Tests 10/05/18 10/05/18 22:59 23:10 WBC 10.9 RBC 4.89 Hgb 14.7 Hct 41.6 MCV 86 MCH 30 MCHC 35 H RDW 14.0 Plt Count 231 Lymph % (Auto) 7.0 L [place] % (Auto) 2.9 Eos % (Auto) 6.9 H Baso % (Auto) 0.7 Lymph # 0.8 L [place] # 0.3 Eos # 0.7 H Baso # 0.1 Seg Neutrophils % 82.4 H Seg Neutrophils # 9.0 H Sodium 142 Potassium 4.8 Chloride 104.3 Carbon Dioxide 24 Anion Gap 18 BUN 16 Creatinine 0.8 Estimated GFR > 60 BUN/Creatinine Ratio 20 Glucose 103 H Calcium 8.8 NT-Pro-B Natriuret Pep 47.52 - EKG Data -: EKG Interpreted by Me EKG shows normal: sinus rhythm Rate: tachycardia (109 bpm) - EKG Data When compared to previous EKG there are: previous EKG unavailable Interpretation: other (no ischemic changes seen) - Radiology Data Radiology results: report reviewed (chest x-ray), image reviewed (chest x-ray) interpreted by me: Chest x-ray-no focal infiltrates, no pneumothorax Findings [facility] [address] [place] [address] XRay Report Signed Patient: MARBELLA MALAGON MR#: [id number] : 1985 Acct:[id number] Age/Sex: 32 / M ADM Date: 10/05/18 Loc: ED Attending Dr: Ordering Physician: GIANCARLO HUNTER MD Date of Service: 10/05/18 Procedure(s): XR chest 1V ap Accession Number(s): [id number] cc: GIANCARLO HUNTER MD Fluoro Time In Minutes: . CHEST 1 VIEW INDICATION: short of breath COMPARISON: 07/28/2018 FINDINGS: Support devices: None Heart: Normal Lungs/Pleura: No acute pulmonary or pleural findings. IMPRESSION: 1. No significant change. Signer Name: Jacoby Hodges MD Signed: 10/05/2018 9:56 PM Workstation Name: [id number] Transcribed By: TM Dictated By: Jacoby Hodges MD Electronically Authenticated By: Jacoby Hodges MD Signed Date/Time: 10/05/182155 DD/ 54 TD/TT: - Differential Diagnosis acute asthma exacerbation Critical care attestation.: If time is entered above; I have spent that time in minutes in the direct care of this critically ill patient, excluding procedure time. ED Disposition Clinical Impression: Acute asthma exacerbation, Shortness of breath Disposition: DC-09 OP ADMIT IP TO THIS HOSP Is pt being admited?: Yes Does the pt Need Aspirin: Yes Condition: Fair Referrals: JOE PARRY MD [Primary Care Provider] - 3-5 Days Time of Disposition: 01:16 (hospitalist paged (Dr. Tressa Chavez))
[2018-10-05] MEDS ORDERED: XOPENEX IH ONE ×2 (21:54→22:53)
--- NOTE | 2018-10-05 22:00 | XRay Report ---
. CHEST 1 VIEW INDICATION: short of breath COMPARISON: 07/28/2018 FINDINGS: Support devices: None Heart: Normal Lungs/Pleura: No acute pulmonary or pleural findings. IMPRESSION: 1. No significant change. Signer Name: Jacoby Hodges MD Signed: 10/05/2018 9:56 PM Workstation Name: [id number]
[2018-10-06 01:11] LABS: Hematocrit 41.6 % (35.5-45.6); Hemoglobin 14.7 gm/dl (11.8-15.2); Red Blood Count 4.89 M/mm3 (3.65-5.03)
[2018-10-06 01:12] LABS: Basophils % (Auto) 0.7 % (0.0-1.8); Eosinophils % (Auto) 6.9 % (0.0-4.3); Lymphocytes # (Auto) 0.8 K/mm3 (1.2-5.4); Mean Corpuscular HGB Conc 35 % (32-34); Mean Corpuscular Volume 86 fl (84-94); Mean Platelet Volume 9 fl (6-12); Monocytes # (Auto) 0.3 K/mm3 (0.0-0.8); Monocytes % (Auto) 2.9 % (0.0-7.3); Platelet Count 231 K/mm3 (140-440)
[2018-10-06 01:13] LABS: Basophils # (Auto) 0.1 K/mm3 (0.0-0.1); Eosinophils # (Auto) 0.7 K/mm3 (0.0-0.4)
[2018-10-06 01:13] LABS: BUN/Creatinine Ratio 20; Blood Urea Nitrogen 16 mg/dL (9-20); Calcium 8.8 mg/dL (8.4-10.2)
[2018-10-06] MEDS ORDERED: TYLENOL PO ONE (01:33)
[2018-10-06 01:44] LABS: Hemolysis Index 179
[2018-10-06] MEDS ORDERED: ZOFRAN IV PRN (02:07)
[2018-10-06] MEDS ORDERED: TYLENOL PO PRN (02:07)
[2018-10-06] MEDS ORDERED: SODIUM CHLORIDE FLUSH SYRINGE 10 ML IV PRN (02:07)
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
[2018-10-06] MEDS: SOLU-Medrol IV SCH ×3 (02:30→16:05)
[2018-10-06] MEDS: DUONEB *Not for PRN Use IH SCH ×3 (03:36→14:39)
[2018-10-06] MEDS ORDERED: DUONEB *Not for PRN Use IH ONE (03:36)
[2018-10-06 03:50] LABS: Hematocrit 42.9 % (35.5-45.6); Hemoglobin 14.7 gm/dl (11.8-15.2); Mean Corpuscular HGB Conc 34 % (32-34); Mean Corpuscular Volume 86 fl (84-94); Platelet Count 241 K/mm3 (140-440); Red Blood Count 4.97 M/mm3 (3.65-5.03)
[2018-10-06 04:10] LABS: BUN/Creatinine Ratio 16; Blood Urea Nitrogen 13 mg/dL (9-20); Hemolysis Index 12
[2018-10-06 04:12] LABS: Creatine Kinase MB 1.8 ng/mL (0.0-4.0)
[2018-10-06 04:55] LABS: Basophils % (Manual) 0 % (0.0-1.8); Eosinophils % (Manual) 0 % (0.0-4.3); Total Cells Counted 100
[2018-10-06 04:56] LABS: Anisocytosis 1+; Poikilocytosis 1+
[2018-10-06 04:57] LABS: Platelet Estimate Consistent w Auto
[2018-10-06] MEDS ORDERED: SOLU-Medrol IV SCH (06:00)
[2018-10-06] MEDS ORDERED: ALUM-MAG HYDROX-SIMETH 200-200-20MG/5ML PO ONE (06:55)
[2018-10-06 09:58] LABS: Creatine Kinase MB 1.6 ng/mL (0.0-4.0)
[2018-10-06] MEDS ORDERED: LOVENOX SUB-Q SCH (10:00)
[2018-10-06] MEDS ORDERED: LOPRESSOR PO SCH (10:00)
[2018-10-06] MEDS ORDERED: SODIUM CHLORIDE FLUSH SYRINGE 10 ML IV SCH (10:00)
[2018-10-06] MEDS: FIORICET PO PRN ×2 (10:06→17:40)
[2018-10-06] MEDS ORDERED: ALUM-MAG HYDROX-SIMETH 200-200-20MG/5ML PO PRN (14:09)
--- NOTE | 2018-10-06 14:35 | Progress Note ---
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 Physical exam GENERAL: well-developed and well-nourished male lying on bed appeared to be in no discomfort. HEENT: Normocephalic. Atraumatic. No conjunctival congestion or icterus. Patient has moist mucous membranes. NECK: Supple. Trachea midline. CHEST/LUNGS: + wheezes auscultated bilaterally, breathing nonlabored. No wheezes crackles or rhonchi. HEART/CARDIOVASCULAR: Regular in rate and rhythm. S1 and S2 positive. ABDOMEN: Abdomen is soft, nontender. Patient has normal bowel sounds. SKIN: There is no rash. Warm and dry. NEURO: No focal motor deficit. Follows command. MUSCULOSKELETAL: No joint effusion or tenderness. EXTRIMITY: No edema, no cyanosis or clubbing. PSYCH: Cooperative. Subjective Date of service: 10/06/18 Interval history: Patient seen and examined. Medical records and medication list reviewed. No acute event overnight noted by the RN. Patient denies any chest pain. Patient is tolerating diet. Continue to have wheezing and shortness of breath on ambulation Discussed plan of care at bedside with patient Objective - Constitutional Vitals: Vital Signs - 12hr 10/06/18 10/06/18 10/06/18 02:35 03:39 04:00 Temperature 98.2 F Pulse Rate 114 H Pulse Rate [ 89 Anterior] Respiratory 18 17 Rate Respiratory 19 Rate [Anterior] Blood Pressure Blood Pressure 151/86 [Left] O2 Sat by Pulse 95 Oximetry 10/06/18 10/06/18 10/06/18 04:30 05:20 05:24 Temperature 98.3 F Pulse Rate 105 H 111 H Pulse Rate [ Anterior] Respiratory 24 24 Rate Respiratory Rate [Anterior] Blood Pressure 137/78 Blood Pressure 137/68 [Left] O2 Sat by Pulse 96 95 95 Oximetry 0810/06/18 10/06/18 10:05 10:30 10:58 Temperature Pulse Rate 110 H Pulse Rate [ 98 H Anterior] Respiratory Rate Respiratory 20 Rate [Anterior] Blood Pressure 137/100 Blood Pressure [Left] O2 Sat by Pulse 94 Oximetry 10/06/18 11:51 Temperature 98.6 F Pulse Rate 94 H Pulse Rate [ Anterior] Respiratory 22 Rate Respiratory Rate [Anterior] Blood Pressure 118/67 Blood Pressure [Left] O2 Sat by Pulse 90 Oximetry - Labs CBC & Chem 7: 10/06/18 03:30 10/06/18 03:30 Labs: Abnormal lab results 10/05/18 10/05/18 10/06/18 Range/Units 22:59 23:10 03:30 MCHC 35 H (32-34) % Lymph % (Auto) 7.0 L (13.4-35.0) % Eos % (Auto) 6.9 H (0.0-4.3) % Lymph # 0.8 L (1.2-5.4) K/mm3 Eos # 0.7 H (0.0-0.4) K/mm3 Seg Neutrophils % 82.4 H (40.0-70.0) % Seg Neuts % (Manual) 93.0 H (40.0-70.0) % Lymphocytes % (Manual) 5.0 L (13.4-35.0) % Seg Neutrophils # 9.0 H (1.8-7.7) K/mm3 Lymphocytes # (Manual) 0.4 L (1.2-5.4) K/mm3 Glucose 103 H (75-100) mg/dL Total Creatine Kinase (55-170) units/L 10/06/18 10/06/18 10/06/18 Range/Units 03:30 03:30 08:51 MCHC (32-34) % Lymph % (Auto) (13.4-35.0) % Eos % (Auto) (0.0-4.3) % Lymph # (1.2-5.4) K/mm3 Eos # (0.0-0.4) K/mm3 Seg Neutrophils % (40.0-70.0) % Seg Neuts % (Manual) (40.0-70.0) % Lymphocytes % (Manual) (13.4-35.0) % Seg Neutrophils # (1.8-7.7) K/mm3 Lymphocytes # (Manual) (1.2-5.4) K/mm3 Glucose 188 H (75-100) mg/dL Total Creatine Kinase 219 H 218 H (55-170) units/L
[2018-10-06] MEDS ORDERED: HABITROL TD SCH (18:00)
[2018-10-06 18:20] VITALS: BP 125/79
== END 2018-10-06 18:00 | disposition home or self-care (01) | DRG 202 ==
LOC: ED 20:37 → 3A 10-06 02:07
PROVIDERS: ADMIT Internal Medicine; ATTEND Internal Medicine
DX: J45.901 Unspecified asthma with (acute) exacerbation (principal); J44.1 Chronic obstructive pulmonary disease with (acute) exacerbation; F17.200 Nicotine dependence, unspecified, uncomplicated; I45.6 Pre-excitation syndrome; I10 Essential (primary) hypertension; F14.90 Cocaine use, unspecified, uncomplicated; Z82.49 Family history of ischemic heart disease and other diseases of the circulatory system; Z71.6 Tobacco abuse counseling; Z83.3 Family history of diabetes mellitus; Z79.899 Other long term (current) drug therapy; Z72.89 Other problems related to lifestyle
CPT/HCPCS: 36415; 71045; 80048; 82550; 82553; 83880; 84484; 85007; 85025; 87116; 93005; 93010; 94640; 94644; 96365; 96375; 99406; G0378; J1650; J2405; J2930; J3475

== ENCOUNTER 2019-05-11 02:11 | Emergency (ER) | payer SELFPAY ==
[2019-05-11] MEDS ORDERED: ASPIRIN 325 MG TAB PO ONE (02:25)
--- NOTE | 2019-05-11 03:08 | XRay Report ---
CHEST 1 VIEW INDICATION / CLINICAL INFORMATION: Chest Pain. COMPARISON: 10/05/2018 FINDINGS: SUPPORT DEVICES: None. HEART / MEDIASTINUM: No significant abnormality. LUNGS / PLEURA: No significant pulmonary or pleural abnormality. No pneumothorax. ADDITIONAL FINDINGS: No significant additional findings. IMPRESSION: 1. No acute findings. No interval change. Signer Name: Mary Leung MD Signed: 05/11/2019 3:03 AM Workstation Name: [id number]
[2019-05-11 03:13] LABS: Basophils # (Auto) 0.1 K/mm3 (0.0-0.1); Eosinophils # (Auto) 1.1 K/mm3 (0.0-0.4); Eosinophils % (Auto) 12.5 % (0.0-4.3); Hematocrit 39.8 % (35.5-45.6); Hemoglobin 13.5 gm/dl (11.8-15.2); Lymphocytes # (Auto) 2.7 K/mm3 (1.2-5.4); Mean Corpuscular HGB Conc 34 % (32-34); Mean Corpuscular Volume 85 fl (84-94); Monocytes # (Auto) 0.7 K/mm3 (0.0-0.8); Platelet Count 253 K/mm3 (140-440); Red Blood Count 4.68 M/mm3 (3.65-5.03); Red Cell Distribution Width 13.3 % (13.2-15.2)
[2019-05-11 03:26] LABS: BUN/Creatinine Ratio 17; Blood Urea Nitrogen 19 mg/dL (9-20); Calcium 9.4 mg/dL (8.4-10.2); Hemolysis Index 18
[2019-05-11] MEDS ORDERED: ALBUTEROL 2.5 MG/3 ML NEBU IH ONE (05:28)
[2019-05-11] MEDS ORDERED: predniSONE 20 MG TAB PO ONE (05:28)
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
[2019-05-11 06:34] VITALS: BP 140/82
== END 2019-05-11 06:34 | disposition home or self-care (01) ==
LOC: ED 02:11
DX: J45.909 Unspecified asthma, uncomplicated (principal); I10 Essential (primary) hypertension; F17.200 Nicotine dependence, unspecified, uncomplicated; Z79.899 Other long term (current) drug therapy
CPT/HCPCS: 36415; 71045; 80048; 84484; 85025; 93005; 93010; 94640; 99284; J7512

== ENCOUNTER 2019-05-12 16:24 | Emergency (ER) | payer SELFPAY ==
--- NOTE | 2019-05-12 16:50 | Emergency Department Report ---
Blank Doc - Documentation Documentation: 33-year-old male that presents cough, fever, wheezing, and SOB. Stated has tr aveled to [place] 2 weeks ago and symptoms started 3 days ago. Was seen in the ED yesterday and came back for worsening symptoms. This initial assessment/diagnostic orders/clinical plan/treatment(s) is/are subject to change based on patient's health status, clinical progression and re- assessment by fellow clinical providers in the ED. Further treatment and workup at subsequent clinical providers discretion. Patient/guardians urged not to elope from the ED as their condition may be serious if not clinically assessed and managed. Initial orders include: 1- Patient sent to [facility] for further evaluation and treatment 2- patient to be placed in isolation room 3- labs
[2019-05-12] MEDS ORDERED: IBUPROFEN 800 MG TAB PO ONE (16:55)
[2019-05-12 17:36] LABS: Basophils # (Auto) 0.1 K/mm3 (0.0-0.1); Eosinophils # (Auto) 0.2 K/mm3 (0.0-0.4); Eosinophils % (Auto) 3.4 % (0.0-4.3); Hematocrit 41.4 % (35.5-45.6); Hemoglobin 13.9 gm/dl (11.8-15.2); Lymphocytes # (Auto) 0.7 K/mm3 (1.2-5.4); Lymphocytes % (Auto) 9.7 % (13.4-35.0); Mean Corpuscular HGB Conc 33 % (32-34); Mean Corpuscular Volume 84 fl (84-94); Monocytes # (Auto) 0.6 K/mm3 (0.0-0.8); Monocytes % (Auto) 8.8 % (0.0-7.3); Platelet Count 227 K/mm3 (140-440); Red Blood Count 4.91 M/mm3 (3.65-5.03); Red Cell Distribution Width 13.6 % (13.2-15.2)
[2019-05-12 17:45] LABS: BUN/Creatinine Ratio 13; Blood Urea Nitrogen 10 mg/dL (9-20); Calcium 9.1 mg/dL (8.4-10.2); Hemolysis Index 9
[2019-05-12 17:49] LABS: Alanine Aminotransferase 28 units/L (7-56); Albumin 4.4 g/dL (3.9-5)
[2019-05-12 17:51] LABS: Bilirubin,Direct < 0.2 mg/dL (0-0.2)
--- NOTE | 2019-05-12 17:55 | XRay Report ---
CHEST 1 VIEW INDICATION: MAIN: cough; Pt. here yesterday with same complaints. Pt. c/o cough, congestion, body aches and feve r. CXR and CBC done yesterday.. COMPARISON: Yesterday FINDINGS: Support devices: None. Heart: Within normal limits. Lungs/Pleura: No acute air space or interstitial disease. Additional findings: None. IMPRESSION: 1. No acute findings. Signer Name: Jesús Box MD Signed: 05/12/2019 5:51 PM Workstation Name: [id number]
[2019-05-12] MEDS ORDERED: SODIUM CHLORIDE 0.9% 1000 ML 1,000 ML IV ONE (18:33)
[2019-05-12] MEDS ORDERED: ACETAMINOPHEN 325 MG TAB PO ONE (18:34)
[2019-05-12] MEDS ORDERED: BENZONATATE 100 MG CAP PO ONE (18:34)
[2019-05-12] MEDS ORDERED: IPRATROPIUM/ALBUTEROL SULFATE 3 ML AMPUL.NEB IH ONE (18:34)
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
[2019-05-12] MEDS ORDERED: ALBUTEROL 2.5 MG/3 ML NEBU IH ONE (20:07)
[2019-05-12] MEDS ORDERED: dexAMETHasone 20 MG/5 ML VIAL IV ONE (20:07)
[2019-05-12 21:20] VITALS: BP 126/38
== END 2019-05-12 21:27 | disposition home or self-care (01) ==
LOC: ED 16:24
DX: J10.1 Influenza due to other identified influenza virus with other respiratory manifestations (principal); J45.901 Unspecified asthma with (acute) exacerbation; I10 Essential (primary) hypertension; F17.200 Nicotine dependence, unspecified, uncomplicated; Z79.899 Other long term (current) drug therapy; Z98.890 Other specified postprocedural states
CPT/HCPCS: 36415; 71045; 80048; 80076; 82140; 85025; 87040; 87400; 94640; 96374; 99284; J1100; J7030; 94644

== ENCOUNTER 2021-01-11 19:52 | Emergency (ER) | payer SELFPAY ==
[2021-01-11] MEDS ORDERED: dexAMETHasone 20 MG/5 ML VIAL IM ONE (19:58)
[2021-01-11] MEDS ORDERED: IPRATROPIUM/ALBUTEROL SULFATE 3 ML AMPUL.NEB IH ONE (19:58)
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
[2021-01-11] MEDS ORDERED: ACETAMINOPHEN W/CODEINE 300-30 MG TAB PO ONE (20:39)
[2021-01-11] MEDS ORDERED: ALBUTEROL 2.5 MG/3 ML NEBU IH ONE ×2 (20:39→22:01)
--- NOTE | 2021-01-11 21:58 | XRay Report ---
CHEST 2 VIEWS INDICATION / CLINICAL INFORMATION: cough sob. COMPARISON: 05/12/2019 FINDINGS: SUPPORT DEVICES: None. HEART / MEDIASTINUM: No significant abnormality. LUNGS / PLEURA: No significant pulmonary or pleural abnormality. No pneumothorax. ADDITIONAL FINDINGS: No significant additional findings. IMPRESSION: 1. No acute findings. Signer Name: Quique Forrest DO Signed: 01/11/2021 9:54 PM Workstation Name: [id number]
[2021-01-11] MEDS ORDERED: IBUPROFEN 800 MG TAB PO ONE (22:01)
[2021-01-11] MEDS ORDERED: AZITHROMYCIN 250 MG TAB PO ONE (22:01)
[2021-01-11 23:12] VITALS: BP 129/69
== END 2021-01-12 02:47 | disposition home or self-care (01) ==
LOC: ED 19:52
DX: J45.901 Unspecified asthma with (acute) exacerbation (principal); I10 Essential (primary) hypertension; F17.200 Nicotine dependence, unspecified, uncomplicated; Z72.89 Other problems related to lifestyle; Z79.899 Other long term (current) drug therapy
CPT/HCPCS: 71046; 94640; 96372; 99284; J1100

== ENCOUNTER 2021-02-20 19:18 | Emergency (ER) | payer SELFPAY ==
[2021-02-20 21:39] VITALS: BP 146/104
--- NOTE | 2021-02-20 22:08 | XRay Report ---
CHEST 1 VIEW INDICATION / CLINICAL INFORMATION: chest congestion. COMPARISON: 01/11/2021 FINDINGS: SUPPORT DEVICES: None. HEART / MEDIASTINUM: No significant abnormality. LUNGS / PLEURA: Patchy bilateral airspace opacities, more predominantly involving the left mid and lo wer lung zones. No pneumothorax. ADDITIONAL FINDINGS: No significant additional findings. IMPRESSION: 1. Multilobar pneumonia, concerning for atypical and/or viral etiology. Signer Name: Reg Muñoz MD Signed: 02/20/2021 10:03 PM Workstation Name: [id number]
[2021-02-20 22:43] LABS: Basophils % (Auto) 0.4 % (0.0-1.8); Hemoglobin 14.9 gm/dl (11.8-15.2); Lymphocytes # (Auto) 1.1 K/mm3 (1.2-5.4); Lymphocytes % (Auto) 20.6 % (13.4-35.0); Mean Corpuscular HGB Conc 33 % (32-34); Mean Corpuscular Volume 85 fl (84-94); Monocytes # (Auto) 0.4 K/mm3 (0.0-0.8); Monocytes % (Auto) 7.2 % (0.0-7.3); Platelet Count 152 K/mm3 (140-440); Red Blood Count 5.43 M/mm3 (3.65-5.03); Red Cell Distribution Width 13.4 % (13.2-15.2)
[2021-02-20] MEDS ORDERED: SODIUM CHLORIDE 0.9% 250ML 250 ML ONE (22:58)
[2021-02-20] MEDS ORDERED: ACETAMINOPHEN 500 MG TAB ONE (22:59)
[2021-02-20 23:02] LABS: Alanine Aminotransferase 27 units/L (7-56); Albumin 4.3 g/dL (3.9-5); BUN/Creatinine Ratio 16; Blood Urea Nitrogen 13 mg/dL (9-20); Hemolysis Index 5
[2021-02-20] MEDS ORDERED: ONDANSETRON 4 MG/2 ML INJ IV ONE (23:55)
[2021-02-20] MEDS ORDERED: SODIUM CHLORIDE 0.9% 1000 ML 1,000 ML IV ONE (23:55)
[2021-02-20] MEDS ORDERED: dexAMETHasone 20 MG/5 ML VIAL IV ONE (23:55)
[2021-02-20] MEDS ORDERED: cefTRIAXone/NS 1 GM/50 ML 1 GM/50 ML BAG IV ONE (23:55)
[2021-02-20] MEDS ORDERED: AZITHROMYCIN/NS 500 MG/250 ML 500 MG/250 ML BAG IV ONE (23:58)
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
[2021-02-21] MEDS ORDERED: MORPHINE 4 MG/1 ML INJ IV ONE (01:21)
== END 2021-02-21 05:27 | disposition home or self-care (01) ==
LOC: ED 19:18
DX: J18.9 Pneumonia, unspecified organism (principal); I10 Essential (primary) hypertension; J45.909 Unspecified asthma, uncomplicated; F17.200 Nicotine dependence, unspecified, uncomplicated
CPT/HCPCS: 36415; 71046; 80053; 82150; 83690; 85025; 96365; 96368; 96375; 99284; J0456; J0696; J1100; J2270; J2405; J7030; J7050; Q0162

== ENCOUNTER 2021-03-22 11:48 | Emergency (ER) | payer SELFPAY ==
[2021-03-22 11:55] VITALS: BP 171/93
[2021-03-22] MEDS ORDERED: HYDROcodone/ACETAMINOPHEN 10-325MG TAB PO ONE (11:58)
[2021-03-22] MEDS ORDERED: LIDOCAINE (2%) 20 MG/1 ML VIAL 20 ML MDV INFILTRATI ONE (11:58)
[2021-03-22] MEDS ORDERED: TETANUS,DIPH,PERTUSS(ACELL) VACCINE 0.5 ML SYRINGE IM ONE (11:59)
--- NOTE | 2021-03-22 12:32 | XRay Report ---
3 VIEWS RIGHT MIDDLE FINGER INDICATION / CLINICAL INFORMATION: lac s/p injury COMPARISON: None available. FINDINGS: BONES / JOINT(S): No acute fracture or subluxation. No significant arthritis. SOFT TISSUES: Soft tissue swelling and possible laceration about the distal phalanx of the third digi t with a few tiny punctate radiodensities within the volar soft tissues about the distal finger, may be related to bandage material. This is best appreciated on lateral view of the digit. ADDITIONAL FINDINGS: None. Signer Name: Reg Muñoz MD Signed: 03/22/2021 12:28 PM Workstation Name: [id number] [id number]
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
== END 2021-03-22 14:22 | disposition home or self-care (01) ==
LOC: ED 11:48
DX: S61.212A Laceration without foreign body of right middle finger without damage to nail, initial encounter (principal); I10 Essential (primary) hypertension; F17.200 Nicotine dependence, unspecified, uncomplicated; W20.8XXA Other cause of strike by thrown, projected or falling object, initial encounter; Y93.89 Activity, other specified; Y92.89 Other specified places as the place of occurrence of the external cause; Y99.8 Other external cause status
CPT/HCPCS: 73140; 90471; 90715; 99283; J3490

== ENCOUNTER 2021-06-20 20:18 | Emergency (ER) | payer SELFPAY ==
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
[2021-06-20 22:35] VITALS: BP 144/72
== END 2021-06-20 22:35 | disposition home or self-care (01) ==
LOC: ED 20:18
DX: B35.4 Tinea corporis (principal); I10 Essential (primary) hypertension; J45.909 Unspecified asthma, uncomplicated; Z98.890 Other specified postprocedural states; F17.200 Nicotine dependence, unspecified, uncomplicated
CPT/HCPCS: 99282